=== PATIENT | female | born 1940 | race Caucasian/White ===

== ENCOUNTER 2017-07-12 15:29 | Outpatient (CLI) | payer MEDICARE, OTHER | END 2017-07-12 15:30 | LOC: LAB 15:29 | PROVIDERS: ATTEND Internal Medicine | DX: R19.7 Diarrhea, unspecified (principal) | CPT/HCPCS: 87045; 87046; 87177; 87209; 87427; 87493 ==

== ENCOUNTER 2018-01-02 07:37 | Outpatient (CLI) | payer MEDICARE, OTHER | END 2018-01-02 09:21 | LOC: LAB 07:37 | PROVIDERS: ATTEND Family Medicine | DX: R19.5 Other fecal abnormalities (principal) | CPT/HCPCS: 87177; 87209 ==

== ENCOUNTER 2018-03-25 09:14 | Outpatient (CLI) | payer MEDICARE, OTHER | END 2018-03-25 09:16 | LOC: LAB 09:14 | PROVIDERS: ATTEND Specialist | DX: G40.109 Localization-related (focal) (partial) symptomatic epilepsy and epileptic syndromes with simple partial seizures, not intractable, without status epilepticus (principal) | CPT/HCPCS: 36415; 80156 ==

== ENCOUNTER 2019-06-16 10:44 | Outpatient (CLI) | payer MEDICARE, OTHER ==
[2019-06-16 10:56] LABS: BASOPHILS % 0.2 % (0.0-1.5); NEUTROPHILS # 4.7 # k/uL (1.4-7.7)
== END 2019-06-16 10:46 ==
LOC: LAB 10:44
PROVIDERS: ATTEND Specialist
DX: G40.909 Epilepsy, unspecified, not intractable, without status epilepticus (principal); Z79.899 Other long term (current) drug therapy
CPT/HCPCS: 36415; 85025